=== PATIENT | female | born 2000 | race Two or more races ===

== ENCOUNTER 2019-12-21 22:54 | Emergency (ER) | payer BC ==
[~2019-12-21] VITALS: Ht 162.6 cm; Wt 58.1 kg
[2019-12-21 22:58] VITALS: Ht 162.6 cm; Wt 58.1 kg
[2019-12-22 01:05] VITALS: BP 118/79
== END 2019-12-22 01:05 | disposition home or self-care (01) ==
LOC: ED 22:54
DX: R07.89 Other chest pain (principal); Z88.6 Allergy status to analgesic agent
CPT/HCPCS: Q0092